=== PATIENT | female | born 1980 | race Caucasian/White ===

== ENCOUNTER 2023-07-21 02:38 | Outpatient (CLI) | payer OTHER, SELFPAY ==
--- OUTSIDE RECORDS SUMMARY | 2023-07-26 10:05 | XMS_ITS | Clinical Summary ---
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 05/2010 NIL/HPV Negative 07/2013 NIL 05/2017 NIL/HPV negative 10/2020 NIL/HPV negative 04/2023 NIL/HPV negative Plan: Pap/HPV due 04/2026 Resolved Problems Problem Noted Date Diagnosed Date Resolved Date Migraine 07/09/2013 04/24/2023 Encounters Date Type Department Care Team Description 07/21/[address] [phone] Brunilda Woodall MD FYI from Last 3 Months Immunizations Name Administration Dates Next Due COVID-19 vaccine ([employer] 30mcg/0.3mL) 12YO+ BIVALENT PF, MDV 12/22/2021 [...] Comments Blood Pressure 106/62 04/24/2023 3:34 PM [facility]ER Pulse 73 04/24/2023 3:34 PM SHO[facility]INER Temperature 36.8 ??C (98.2 ??F) 11/02/2020 6:36 PM CD T Respiratory Rate 16 11/02/2020 6:36 PM CDT Oxygen Saturation 99% 04/24/2023 3:34 PM [facility]INER Inhaled Oxygen Concentration - - Weight 44.8 kg (98 lb 12.8 oz) 04/24/2023 3:34 P M SHOESHINER Height 158.1 cm (5' 2.25) 04/24/2023 3:34 PM CS T Body Mass Index 17.93 04/24/2023 3:34 PM SHOESHINER Plan of Treatment Upcoming Encounters Date Type Department Care Team (Late st Contact Info) Description 07/26/2023 11:00 AM CDT Office Visit [facility] [address] [place] [address] Brunilda Woodall MD [address] [place] [address] Health Maintenance Due Date Last Done Comments [...] 18-79 Completed 12/23/2021 COVID-19 vaccine series Completed 01/05/20 23, 12/22/2021, 02/03/2021, Additional history exists Pneumococcal series for age 6-64 Aged Out No longer eligible based on patient's age to complete this topic Procedures Procedure Name Priority Date/Time Associated Diagnosis Comments HPV THIN PREP Routine 04/24/2023 3:30 PM [facility]INER Screening for malignant neoplasm of cervix ANTI HIV 1/2 Routine 12/23/2021 11:06 AM CDT Screening examination for STD (sexually transmitted disease) ANTI HCV Routine 12/23/2021 11:06 AM CDT Encounter for hepatitis C screening test for low risk patient from Last 3 Months or Most Recently Relevant to Health Maintenance Results * HPV HIGH RISK (04/24/2023 3:30 PM SHOESHINER) TYPE 16 Negative Negative 04/27/2023 12:47 PM [facility]ER [facility] TYPE 18 Negative Negative 04/27/2023 12:47 PM SHOESHINER [facility] OTHER HIGH RISK TYPES Negative Negative 04/27/2023 12:47 PM SHOESHINER [facility] Other (Cervical) Non-Blood / Unknown 04/24/2023 3:30 PM SHOESHINER 04/25/2023 1:12 PM SHOESHINER Narrative [facility] - 04/27/2023 12:47 PM SHOESHINER HPV types 16, 18, 31, 33, 35, 39, 45, 51, 52, 56, 58, 59, 66 and 68 DNA were undetectable or below the pre-set threshold. Methodology: Delfina Jessica 4800 HPV Test Brunilda Woodall MD MICROBIOLOGY [facility] [address] [place] [address], * ANTI HCV (12/23/2021 11:06 AM CDT) HEPATITIS C ANTIBODY Non-React mckenna Non-React mckenna 12/24/2021 5:48 PM CDT [facility] Comment:Antibodies to HCV no t detected; does not exclude the possibility of exposure to HCV. Blood BLOOD SPECIMEN / Unknown Venipuncture / Unknown 12/23/2021 11:06 AM CDT 12/23/2021 11:08 AM CDT Brunilda Woodall MD SEND OUTS [facility] [address] [place] [address], * ANTI HIV 1/2 (12/23/2021 11:06 AM CDT) HIV-1/HIV-2 ANTIBODY Non-Reacti ve Non-Reacti ve 12/24/2021 5:[address] [facility] Comment:HIV-1 p24 and HIV-1/ HIV-2 Ab not detected. Blood BLOOD SPECIMEN / Unknown Venipuncture / Unknown 12/23/2021 11:06 AM CDT 12/23/2021 11:08 AM CDT Brunilda Woodall MD SEND OUTS [facility] [address] [place] [address], from Last 3 Months or Most Recently Relevant to Health Maintenance Care Teams Brazer Helper Induction Relationship Specialty Start Date End Date Brunilda Woodall MD [address] [facility] [place] [address] PCP - General Family Practice 06/18/13
== END 2023-07-21 02:39 | disposition home or self-care (01) ==
LOC: AMB 07-26 10:01
PROVIDERS: PCP Family Medicine; Visit Provider Family Medicine
DX: R10.9 Unspecified abdominal pain (principal)
CPT/HCPCS: A0998

== ENCOUNTER 2023-07-21 03:06 | Emergency (ER) | payer OTHER, SELFPAY ==
[2023-07-21 03:15] VITALS: BP 103/60; PULSE 63; RESP 18; TEMP 36.4; O2SAT 100; BMI 18.3
--- NOTE | 2023-07-21 03:33 | CT_ITS ---
Patient: CATHY WATKINS Facility:?[facility] RIS Patient ID:?[id number] Site Patient ID:?[id number]. Site :?[id number] Study:?CT-Abdomen/Pelvis W/ISOVUE 370 49CC-07/21/2023 4:09:18 AM Ordering Physician:KARYN Final Report: INDICATION: epigastric pain TECHNIQUE: CT abdomen and pelvis with 49 cc Isovue 370 IV contrast. COMPARISON: None. FINDINGS: The liver is normal in size, shape and attenuation. 1.1 centimeter hypodense left hepatic lobe lesion most likely represents a hepatic cyst. Mild periportal edema. Gallbladder and biliary tree are normal. The spleen, adrenal glands and pancreas are within normal limits. Subcentimeter renal hypodensities are too small to characterize at the upper pole of the right kidney. No hydronephrosis. No bladder wall thickening. L the stomach is decompressed. Arge stool burden within the cecum, ascending colon, and proximal transverse colon. At the level of the proximal transverse colon the colon becomes focally narrowed which may relate to decompression in this area but can not entirely exclude a colonic lesion. The more distal colon is winy-xy-yfwbzdzdbg distended with air with mild stool burden more distally. The upstream small bowel is fluid-filled and mildly dilated which is nonspecific. No evidence of free air. Small volume free fluid within the pelvis. Pelvic organs are unremarkable. The lower chest is unremarkable. IMPRESSION: 1. Periportal edema is noted, nonspecific. Recommend correlation with LFTs. Finding can be seen the setting of hepatitis, amongst other etiologies. 2. Large stool burden within the cecum, ascending colon, and proximal transverse colon. At the level of the proximal transverse colon the colon becomes focally narrowed which may relate to decompression in this area but can not entirely exclude a colonic lesion. The more distal colon is oqgb-wg-kaohjxsiny distended with air with mild stool burden more distally. The upstream small bowel is fluid-filled and mildly dilated which is nonspecific. 3. Small volume free fluid within the pelvis. Please note that all CT scans at this facility use dose modulation, iterative reconstruction, and/or weight-based dosing when appropriate to reduce radiation dose to as low as reasonably achievable. Dictated by Milad Judd MD @ 07/21/2023 4:46:07 AM Signed by:?Milad Judd MD @07/21/2023 4:46:07 AM (Electronic Signature)
[2023-07-21] MEDS: 0.9 % SODIUM CHLORIDE 500 ML 500 ML 1000 ML IV (04:00)
[2023-07-21] MEDS: fentaNYL 100 MCG/2 ML inj 25 MCG IVP (04:00)
[2023-07-21 04:13] LABS: Basophils Absolute Auto 0.04 K/uL (0.00-0.30); Basophils Percent Auto 0.5 % (0.0-3.0); Eosinophils Absolute Auto 0.08 K/uL (0.00-0.50); Immature Granulocytes Abs Auto 0.02 K/uL (0.00-0.30); Immature Granulocytes Pct Auto 0.2 %; Lymphocytes Percent Auto 19.1 % (20-44); Mean Corpuscular HGB Conc 32 gm/dL (32-36); Mean Corpuscular Hemoglobin 27 pg (26-34); Mean Corpuscular Volume 83 fL (80-100); Monocytes Percent Auto 7.3 % (0.0-11.0); Neutrophils Absolute Auto 5.78 K/uL (1.7-7.0); Neutrophils Percent Auto 71.9 % (42.0-72.0); Platelet Count* 230 K/uL (140-440); RDW Coefficient of Variation % 14.6 % (11.5-15.5); Red Blood Count 3.75 m/uL (4.00-5.20); White Blood Count* 8.05 K/uL (4.50-11.00)
[2023-07-21 04:16] LABS: Albumin* 4.4 g/dL (3.3-5.0); Potassium* 3.7 mmol/L (3.6-5.1); Sodium* 137 mmol/L (135-149)
[2023-07-21 04:17] LABS: Slide Review Reflex No
[2023-07-21 04:18] LABS: Anion Gap 8 mEq/L (7-15); Carbon Dioxide* 24 mmol/L (20-32); Chloride* 105 mmol/L (96-114); Creatinine* 0.7 mg/dL (0.5-1.5); Estimated Glomerular Filt Rate 112 ml/min
[2023-07-21 04:19] VITALS: BP 107/59; PULSE 57; RESP 16; TEMP 36.7; O2SAT 100
[2023-07-21 04:19] LABS: Alanine Aminotransferase* 13 U/L (4-35); Alkaline Phosphatase* 46 U/L (40-150); Aspartate Amino Transferase* 30 U/L (12-35); Bilirubin Total* 0.5 mg/dL (0.1-1.5); Blood Urea Nitrogen* 16 mg/dL (5-24); Calcium* 9.1 mg/dL (8.4-10.6); Glucose* 144 mg/dL (60-115); Lipase* 86 U/L (23-300); Total Protein* 7.3 g/dL (6.0-8.3)
--- OUTSIDE RECORDS SUMMARY | 2023-07-21 04:32 | XMS_ITS | Clinical Summary ---
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 05/2010 NIL/HPV Negative 07/2013 NIL 05/2017 NIL/HPV negative 10/2020 NIL/HPV negative 04/2023 NIL/HPV negative Plan: Pap/HPV due 04/2026 Resolved Problems Problem Noted Date Diagnosed Date Resolved Date Migraine 07/09/2013 04/24/2023 Encounters Date Type Department Care Team Description 04/24/2023 3:30 PM AMBULANCE MECHANIC Office Visit [address] [address] Brunilda Woodall MD Physical 04/24/2023 Travel from Last 3 Months Immunizations Name Administration Dates Next Due COVID-19 vaccine ([employer] NTech 30mcg/0.3mL) 12YO+ BIVALENT PF, MDV 12/22/2021 Influenza A (H1N1), Inactivated 03/19/2009 Influenza, IIV3 (Age >=3 years) 05/15/2006 Influenza, IIV4 12/22/2021, 6,12/15/2014,2012 Influenza, IIV4 (=>6mos) MDV 11/27/2019, 12/31/2018,12/05/2017,2016,01/06/2014 Influenza, Injectable, Mdck, Quadrivalent, W/preservative 01/04/2023,11/24/2020 Tdap 07/24/2018,01/31/2007 Tetanus Toxoid 01/31/2007 Family History Medical History Relation Name Comments No Known Problems Brother No Known Problems Daughter Good Health Father No Known Problems Half-Brother No Known Problems Half-Sister No Known Problems Maternal Aunt No Known Problems Maternal Grandfather No Known Problems Maternal Grandmother No Known Problems Maternal Uncle Good Health Mother No Known Problems Other No Known Problems Paternal Aunt No Known Problems Paternal Grandfather No Known Problems Paternal Grandmother No Known Problems Paternal Uncle No Known Problems Sister No Known Problems Son Relation Name Status Comments Brother Daughter Father Alive Half-Brother Half-Sister Maternal Aunt Maternal Grandfather Maternal Grandmother Maternal Uncle Mother Alive Other Paternal Aunt Paternal Grandfather Paternal Grandmother Paternal Uncle Sister Son Social History Tobacco Use Types Packs/Day Years Used Date Smoking Tobacco: Never Smokeless Tobacco: Never Tobacco Cessation:Counseling Given: Yes Alcohol Use Standard Drinks/Week Comments Yes 0 (1 standard drink = 0.6 oz pur e alcohol) occasionally beer PHQ-2 Answer Date Recorded PHQ-2 TOTAL SCORE 0 04/24/2023 Social Connections Answer Date Recorded Frequency of Communication with Friends and Fami ly Not on file 03/06/2021 Financial Resource Strain Answer Date R ecorded Difficulty of Paying Living Expenses Not on file 03/06/2021 Difficulty of Paying Living Expenses Not on file 03/06/2021 Sex and Gender Information Value Date Recorded Sex Assigned at Not on file Gender Identity Not on file Sexual Orientation Not on file Obstetrics History Para Term AB IAB SAB Ectopic Multiple Livin g Live Births 2 2 2 2 Date Outcome GA Total Labor Labor/2nd/3rd Weight Sex Delivery Anes PTL Alycia A1 A5 Name Cl in Term Term Last Filed Vital Signs Vital Sign Reading Time Taken Comments Blood Pressure 106/62 04/24/2023 3:34 PM AMBULANCE MECHANIC Pulse 73 04/24/2023 3:34 PM AMBULANCE MECHANIC Temperature 36.8 ??C (98.2 ??F) 11/02/2020 6:36 PM CD T Respiratory Rate 16 11/02/2020 6:36 PM CDT Oxygen Saturation 99% 04/24/2023 3:34 PM AMBULANCE MECHANIC Inhaled Oxygen Concentration - - Weight 44.8 kg (98 lb 12.8 oz) 04/24/2023 3:34 P M AMBULANCE MECHANIC Height 158.1 cm (5' 2.25) 04/24/2023 3:34 PM CS T Body Mass Index 17.93 04/24/2023 3:34 PM AMBULANCE MECHANIC Plan of Treatment Health Maintenance Due Date Last Done Comments Influenza for age 9-49 11/05/2023 , 12/22/2021, 11/24/2020, Additional history exists BMI (ht and wt on same day) for age 18+ 04/24/2024 04/24/2023, 12/22/2021, 11/02/2020, Additional history exists Depression screening for age 12+ 04/24/2024 04/24/2023, 12/22/2021, 11/02/2020, Additional history exists Pap test for age 21-65 04/24/2026 , 04/24/2023, 11/02/2020, Additional history exists Tetanus booster 07/24/2028 07/24/2018, 01/31/2007 Tdap Completed 07/24/2018, 01/31/2007 HIV for age 15-65 Completed 12/23/2021 Hepatitis C screening for age 18-79 Completed 12/23/2021 COVID-19 vaccine series Completed 01/05/20, 12/22/2021, 02/03/2021, Additional history exists Pneumococcal series for age 6-64 Aged Out No longer eligible based on patient's age to complete this topic Procedures Procedure Name Priority Date/Time Associated Diagnosis Comments LIPID PANEL W REFLEX MEASURED LDL Routine 04/24/2023 4:13 PM AMBULANCE MECHANIC Annual physical exam Vitamin D deficiency BASIC METABOLIC PANEL Routine 04/24/2023 4:13 PM AMBULANCE MECHANIC Annual physical exam CBC W PLT NO DIFF Routine 04/24/2023 4:1 3 PM AMBULANCE MECHANIC Annual physical exam QUALITY ASSURANCE LAB TECHNICIAN THIN PREP PAP SCREEN IMAGED Routine 04/24/2023 3:30 PM AMBULANCE MECHANIC Screening for malignant neoplasm of cervix HPV THIN PREP Routine 04/24/2023 3:30 PM AMBULANCE MECHANIC Screening for malignant neoplasm of cervix ANTI HIV 1/2 Routine 12/23/2021 11:06 AM CDT Screening examination for STD (sexually transmitted disease) ANTI HCV Routine 12/23/2021 11:06 AM CDT Encounter for hepatitis C screening test for low risk patient from Last 3 Months or Most Recently Relevant to Health Maintenance Results * (ABNORMAL) LIPID PANEL W REFLEX MEASURED LDL (04/24/2023 4:13 PM AMBULANCE MECHANIC) CHOLESTEROL,TOTAL 223(H) 100 - 199 mg/dL 04/24/2023 5:[address] [facility] Comment: Cholesterol, Total Reference Ranges Desirable <200 mg/dL Borderline 200-239 mg/dL High >=240 mg/dL TRIGLYCERIDES 111 <150 mg/dL 04/24/2023 5:[address] [facility] HDL CHOLESTEROL 76 >40 mg/dL 5:[address] [facility] NON-HDL CHOLESTEROL 147(H) <145 mg/dl 04/24/2023 5:[address] [facility] CHOL/HDL RATIO 2.93 <4.50 04/24/2023 5:[address] [facility] LDL CHOLESTEROL 125 <=130 mg/dL 04/24/2023 5:[address] [facility] VLDL CHOLESTEROL 22 <=30 mg/dL 04/24/2023 5:[address] [facility] PROVIDER ORDERED STATUS RANDOM 04/24/2023 5:[address] [facility] Blood BLOOD SPECIMEN / Unknown Venipuncture / Unknown 04/24/2023 4:13 PM AMBULANCE MECHANIC 04/24/2023 4:15 PM AMBULANCE MECHANIC Brunilda Woodall MD CHEMISTRY [facility] [address] [place] [address] * (ABNORMAL) CBC W PLT NO DIFF (04/24/2023 4:13 PM AMBULANCE MECHANIC) WHITE BLOOD COUNT 7.2 4.5 - 11.0 thou/cu mm 04/24/2023 4:[address] [facility] RED BLOOD COUNT 4.22 4.00 - 5.20 mil/cu mm 04/24/2023 4:[address] [facility] HEMOGLOBIN 11.3(L) 12.0 - 16.0 g/dL 04/24/2023 4:[address] [facility] HEMATOCRIT 36.3 33.0 - 51.0 % 04/24/2023 4:[address] [facility] MCV 86 80 - 100 fL 04/24/2023 4:[address] [facility] MCH 26.8 26.0 - 34.0 pg 04/24/2023 4:[address] [facility] MCHC 31.1(L) 32.0 - 36.0 g/dL 04/24/2023 4:[address] [facility] RDW 14.5 11.5 - 15.5 % 04/24/2023 4:[address] [facility] PLATELET COUNT 289 140 - 440 thou/cu mm 04/24/2023 4:[address] [facility] MPV 9.8 6.5 - 11.0 fL 04/24/2023 4:[address] [facility] Blood BLOOD SPECIMEN / Unknown Venipuncture / Unknown 04/24/2023 4:13 PM AMBULANCE MECHANIC 04/24/2023 4:15 PM [facility] Brunilda Woodall MD HEMATOLOGY [facility] [address] [place] [address] * BASIC METABOLIC PANEL (04/24/2023 4:13 PM [facility]) [facility] SODIUM 141 136 - 145 mmol/L 04/24/2023 5:[address] [facility] POTASSIUM 3.8 3.5 - 5.1 mmol/L 04/24/2023 5:[address] [facility] CHLORIDE 104 98 - 107 mmol/L 04/24/2023 5:[address] [facility] CO2,TOTAL 28 22 - 29 mmol/L 04/24/2023 5:[address] [facility] ANION GAP 9 5 - 18 04/24/2023 5:[address] [facility] GLUCOSE 87 70 - 99 mg/dL 04/24/2023 5:[address] [facility] CALCIUM 9.7 8.6 - 10.0 mg/dL 04/24/2023 5:[address] [facility] BUN 14 6 - 20 mg/dL 04/24/2023 5:[address] [facility] CREATININE 0.73 0.50 - 0.90 mg/dL 04/24/2023 5:[address] [facility] BUN/CREAT RATIO 19 10 - 20 5:[address] [facility] eGFR >90 >90 mL/min/1.7 3m2 04/24/2023 5:[address] [facility] Comment:As of 2021, eG FR is calculated by the CKD-EPI creatinine equation without race adjustment. ??eGFR can be influenced by muscle mass, exercise, and diet. ??The reported eGFR is an estimation only and is only applicable if the renal function is stable. Blood BLOOD SPECIMEN / Unknown Venipuncture / Unknown 04/24/2023 4:13 PM AMBULANCE MECHANIC 04/24/2023 4:15 PM AMBULANCE MECHANIC Brunilda Woodall MD CHEMISTRY [facility] [address] [place] [address] * QUALITY ASSURANCE LAB TECHNICIAN THIN PREP PAP SCREEN IMAGED (04/24/2023 3:30 PM AMBULANCE MECHANIC) Case Report Gynecologic Cytology Report ? Case: [id number] ? Authorizing Provider: ??Brunilda Woodall MD ?Collected: ? 04/24/2023 1530 ? Ordering Location: ? [facility] ?Received: ?04/24/2023 1643 ? Clinic ? First Screen: ?Julisa Murcia ? Specimen: ?QUALITY ASSURANCE LAB TECHNICIAN ThinPrep Vial Screening, Cervical ? 05/01/2023 12:18 PM [facility]CHANIC [facility] INTERPRETATION/ RESULT NEGATIVE FOR INTRAEPITHELIAL LESION OR MALIGNANCY (NIL) (none) 05/01/2023 12:18 PM [facility]- [facility]AL [facility] NISM(S) Fungal organisms morphologically consistent with Monika species 05/01/2023 12:18 PM [facility]BULANCE MECHANIC [facility] ENTRAL [facility] SPECIMEN ADEQUACY Satisfactory for evaluation Endocervical component present 05/01/2023 12:18 PM AMBULANCE MECHANIC [facility] ENTRAL LABORATORY HPV REQUEST HPV and PAP 05/01/2023 12:18 PM AMBULANCE MECHANIC [facility] ENTRAL LABORATORY Date of LMP 04/03/2023 05/01/2023 12:18 PM AMBULANCE MECHANIC [facility] Last Pap Date 11/03/20 05/01/2023 12:18 PM AMBULANCE MECHANIC [facility] Last Pap Result NIL 12:18 PM AMBULANCE MECHANIC [facility] EN[facility] Abnormal Pap or [place] Bx in last 5 years No 05/01/2023 12:18 PM AMBULANCE MECHANIC [facility] Menstrual Status Regular Periods 05/01/2023 12:18 PM AMBULANCE MECHANIC [facility] [place] Bx Done Today No 05/01/2023 12:18 PM AMBULANCE MECHANIC [facility] Additional Information None given 05/01/2023 12:18 PM AMBULANCE MECHANIC [facility] Comment: Cytology is screened at [facility] - [address], [place] [address] and [facility] - [address] [place] [address] and [facility] - [address] [place] [address] Interpreted at [facility] - [address], [place] [address] Automated Review Successful 05/01/2023 12:18 PM AMBULANCE MECHANIC [facility] Comment:Specimen processed s uccessfully by automated rn unit manager device, ThinPrep Imaging System, [employer] ANCILLARY TESTING QUALITY ASSURANCE LAB TECHNICIAN HPV Ordered, Please see separate report 05/01/2023 12:18 PM AMBULANCE MECHANIC [facility] Note The pap test is a screening technique, not a diagnostic procedure. It is used primarily to screen for squamous cancers and precursor lesions. Published studies have shown that it is subject to both false negative and false positive results. The pap test should not be used as the sole means to diagnose or exclude pre-malignant and malignant lesions. 05/01/2023 12:18 PM AMBULANCE MECHANIC [facility] Other (Cervical) Non-Blood / Unknown 04/24/2023 3:30 PM AMBULANCE MECHANIC 04/24/2023 4:43 PM AMBULANCE MECHANIC Brunilda Woodall MD PATHOLOGY/CYTOLOGY [facility] [address] [place] [address] * HPV HIGH RISK (04/24/2023 3:30 PM AMBULANCE MECHANIC) [facility] TYPE 16 Negative Negative 04/27/2023 12:47 PM AMBULANCE MECHANIC [facility] TYPE 18 Negative Negative 04/27/2023 12:47 PM AMBULANCE MECHANIC [facility] OTHER HIGH RISK TYPES Negative Negative 04/27/2023 12:47 PM AMBULANCE MECHANIC [facility] Other (Cervical) Non-Blood / Unknown 04/24/2023 3:30 PM AMBULANCE MECHANIC 04/25/2023 1:12 PM AMBULANCE MECHANIC Narrative [facility] - 04/27/2023 12:47 PM AMBULANCE MECHANIC HPV types 16, 18, 31, 33, 35, 39, 45, 51, 52, 56, 58, 59, 66 and 68 DNA were undetectable or below the pre-set threshold. Methodology: Delfina Jessica 4800 HPV Test Brunilda Woodall MD MICROBIOLOGY Performing Organization Address [facility] Co de Phone Number [facility] [address] [place] [address] * ANTI HCV (12/23/2021 11:06 AM CDT) [facility] HEPATITIS C ANTIBODY Non-React mckenna Non-React mckenna 12/24/2021 5:48 PM CDT [facility] Comment:Antibodies to HCV no t detected; does not exclude the possibility of exposure to HCV. Blood BLOOD SPECIMEN / Unknown Venipuncture / Unknown 12/23/2021 11:06 AM CDT 12/23/2021 11:08 AM CDT Brunilda Woodall MD SEND OUTS Performing Organization Address City/[facility]/ZIP Co de Phone Number [facility] [address] [place] [address], * ANTI HIV 1/2 (12/23/2021 11:06 AM CDT) HIV-1/HIV-2 ANTIBODY Non-Reacti ve Non-Reacti ve 12/24/2021 5:48 PM CDT [facility] Comment:HIV-1 p24 and HIV-1/ HIV-2 Ab not detected. Blood BLOOD SPECIMEN / Unknown Venipuncture / Unknown 12/23/2021 11:06 AM CDT 12/23/2021 11:08 AM CDT Brunilda Woodall MD SEND OUTS [facility] LAB[facility] [address] [place] [address], from Last 3 Months or Most Recently Relevant to Health Maintenance Care Teams Salesforce Administrator Relationship Specialty Start Date End Date Brunilda Woodall MD [address] [facility] [place] [address] PCP - General Family Practice 06/18/13
--- NOTE | 2023-07-21 04:44 | PC.NURSE ---
Pt states she is unable to urinate, will let RN know when she is able to give a sample. IV fluids going. Pt rates abdominal pain 6/10 currently, declines medication for discomfort at this time. SO at bedside.
[2023-07-21] MEDS: SIMETHICONE 80 MG TAB.CHEW 160 MG PO (05:21)
[2023-07-21] MEDS: MORPHINE 2 MG/ML inj IVP (05:21)
[2023-07-21 05:54] VITALS: BP 99/59; PULSE 57; RESP 16; O2SAT 99
--- NOTE | 2023-07-21 05:55 | PC.NURSE ---
Pt states pain is improved, rates discomfort 4/10. Able to rest. Still need urine, pt will put chemist water purification light when she feels like she can pee. SO at bedside.
--- NOTE | 2023-07-21 06:07 | ED.ABDPAIN ---
HPI - Abdominal Pain General Date Seen: 07/21/23 Chief Complaint: Abdominal Pain Stated Complaint: upper abdominal pain Time Seen by Provider: 07/21/23 03:12 Source: patient Mode of arrival: ambulatory Limitations: no limitations History of Present Illness HPI narrative: Patient is a 42-year-old female who was in her usual state of good health when she went to bed this evening. She awoke at around 1:30 a.m. to urinate and after going she stood up and had severe epigastric pain. She did vomit a little but that did not relieve her pain. She called the nurse line who told her to call 911. When the paramedics arrived they gave her dose of Zofran and told her that she should seek medical attention. Her boyfriend brings her in for evaluation. She has never had pain like this previously. She has a bowel movement about every other day. She had one yesterday. She did eat case heard food twice yesterday but nothing out of the ordinary. No fevers or chills. No black or bloody stools. She has no chronic health problems and takes no medication regularly. There is no family history of colon cancer. No acid reflux. She is not a drinker. Related Data Previous Rx's Medication Instructions Recorded hydrocodone 5 mg-acetaminophen 325 1 tab PO Q4H PRN pain #10 tabs 07/21/23 mg tablet Allergies Allergy/AdvReac Type Severity Reaction Status Date / Time No Known Drug Allergies Allergy Verified 07/21/23 03:20 Review of Systems Narrative Review of systems is outlined above otherwise noted to be negative. PFSH PFS Surgical History (Updated 07/21/23 @ 06:02 by Gallito Samaniego MD) History of loop electrical excision procedure (LEEP) ?Z98.890 - Other specified postprocedural states (ICD-10) Social History (Updated 07/21/23 @ 06:07 by Gallito Samaniego MD) Narrative: , 2 sons, noin-smoker Smoking Status: Never smoker Do you use any of these nicotine containing products: None Second hand tobacco smoke exposure: No How often do you have a drink containing alcohol: monthly or less How often do you have six or more drinks on one occasion: Never AUDIT-C Alcohol total score: 1 Non-prescribed substance use: denies use service: No Exam Narrative: Exam Narrative: Vitals noted. She appears pale and very uncomfortable. Lungs: Clear to auscultation in all felix. No wheezes, rales, rhonchi. Heart: Regular rate and rhythm without murmur. Abdomen: Thin, Soft with epigastric and left upper quadrant tenderness. No guarding, rigidity, rebound. Bowel sounds are normal. No palpable masses. Extremities: No cyanosis or edema. Good distal pulses. Skin: No abnormalities noted of the exposed skin. Neurologic: Awake, alert, fully oriented. Neurologic exam is nonfocal. Const: Vital Signs, click to edit/add: Vital Signs - 24 hr 07/21/23 03:15 07/21/23 04:19 07/21/23 05:54 Temperature 97.6 F 98.0 F Pulse Rate [Pulse Oximeter] 63 57 L 57 L Respiratory Rate 18 16 16 Blood Pressure [Ri ght Upper Arm] 103/60 107/59 L 99/59 L Pulse Oximetry 100 100 99 Oxygen Delivery Me thod Room Air Room Air Room Air 07/21/23 06:37 Temperature 98.0 F Pulse Rate [Pulse Oximeter] 56 L Respiratory Rate 16 Blood Pressure [Ri ght Upper Arm] 111/73 Pulse Oximetry 99 Oxygen Delivery Me thod Room Air Course Course ED Course: Patient was seen and examined. Labs and CT of her abdomen and pelvis are ordered. She is given fentanyl 25 mcg IV to help with pain control. She had a dose of Zofran and within the last hour. IV is established in she will be given a L of saline. Reevaluation(s) Reevaluation #1: CBC shows a hemoglobin of 10.0. This was almost 12 in April. Basic metabolic panel and LFTs and lipase are all normal. CT of her abdomen and pelvis with IV contrast shows some nonspecific periportal edema, a large stool burden mainly in the right colon. There is an area in the proximal transverse colon with focal narrowing that the radiologist's comments could represent a colonic lesion. Small bowel is mildly distended and fluid filled. Her distal colon has a lot of air. Her pain was not relieved by fentanyl and 2 mg of IV morphine was given along with a dose of simethicone 160 mg orally. Reevaluation #2: The case was discussed with Dr. Huff who did not feel that an emergent endoscopy was necessary. The patient is feeling of little better after the morphine and simethicone. She is comfortable being discharged home with a plan to follow-up with her PCP early next week to discuss an outpatient colonoscopy as well as her new anemia. All questions were answered. We discussed foods to try as well as foods to avoid. Vital Signs Vital signs: Initial Vital Signs Temperature 97.6 F 07/21/23 03:15 Temperature Source Temporal Artery Scan 07/21/23 03:15 Pulse Rate 63 07/21/23 03:15 Pulse Rhythm Regular 07/21/23 03:15 Respiratory Rate 18 07/21/23 03:15 Blood Pressure 103/60 07/21/23 03:15 Blood Pressure Mean 74 07/21/23 03:15 Blood Pressure Position Sitting 07/21/23 03:15 Pulse Oximetry 100 07/21/23 03:15 Oxygen Delivery Method Room Air 07/21/23 03:15 Vital Signs Temperature 97.6 F 07/21/23 03:15 Pulse Rate 63 07/21/23 03:15 Respiratory Rate 18 07/21/23 03:15 Blood Pressure 103/60 07/21/23 03:15 Pulse Oximetry 100 07/21/23 03:15 Oxygen Delivery Method Room Air 07/21/23 03:15 Temperature 98.0 F 07/21/23 06:37 Pulse Rate 56 L 07/21/23 06:37 Respiratory Rate 16 07/21/23 06:37 Blood Pressure 111/73 07/21/23 06:37 Pulse Oximetry 99 07/21/23 06:37 Oxygen Delivery Method Room Air 07/21/23 06:37 Medications Administered Medications: Generic Name Dose Route Start Last Admin Trade Name Abilio PRN Reason Stop Dose Admin Fentanyl 25 mcg 07/21/23 03:36 07/21/23 04:00 Fentanyl 100 Mcg/2 Ml Inj IVP 07/21/23 03:37 25 mcg ONCE ONE Administration Sodium Chloride 500 mls @ 1,000 mls/hr 07/21/23 03:35 07/21/23 04:00 0.9 % Sodium Chloride 500 Ml IV 07/21/23 04:04 1,000 mls/hr .Q30M TERESO Administration Morphine Sulfate 2 mg 07/21/23 05:02 07/21/23 05:21 Morphine 2 Mg/Ml Inj IVP 07/21/23 05:03 2 mg ONCE ONE Administration Simethicone 160 mg 07/21/23 05:03 07/21/23 05:21 Simethicone 80 Mg Tab.Chew PO 07/21/23 05:04 160 mg ONCE ONE Administration MDM - Abdominal Pain Lab Data Labs: Lab Results 07/21/23 Range/Units 03:46 WBC 8.05 (4.50-11.00) K/uL RBC 3.75 L (4.00-5.20) m/uL Hgb 10.0 L (12.0-16.0) gm/dL Hct 31.0 L (33.0-51.0) % MCV 83 (80-100) fL MCH 27 (26-34) pg MCHC 32 (32-36) gm/dL RDW Coeff of Soy 14.6 (11.5-15.5) % Plt Count 230 (140-440) K/uL Neut % (Auto) 71.9 (42.0-72.0) % Lymph % (Auto) 19.1 L (20-44) % [place] % (Auto) 7.3 (0.0-11.0) % Eos % (Auto) 1.0 (0.0-7.0) % Baso % (Auto) 0.5 (0.0-3.0) % Neut # (Auto) 5.78 (1.7-7.0) K/uL Lymph # (Auto) 1.50 (0.90-2.90) K/uL [place] # (Auto) 0.60 (0.00-0.90) K/UL Eos # (Auto) 0.08 (0.00-0.50) K/uL Baso # (Auto) 0.04 (0.00-0.30) K/uL Abs Immat Gran (auto) 0.02 (0.00-0.30) K/uL Imm/Tot Granulo (auto) 0.2 % Sodium 137 (135-149) mmol/L Potassium 3.7 (3.6-5.1) mmol/L Chloride 105 (96-114) mmol/L Carbon Dioxide 24 (20-32) mmol/L Anion Gap 8 (7-15) mEq/L BUN 16 (5-24) mg/dL Creatinine 0.7 (0.5-1.5) mg/dL Estimated Creat Clear 76.50 Estimated GFR 112 ml/min Glucose 144 H (60-115) mg/dL Calcium 9.1 (8.4-10.6) mg/dL Total Bilirubin 0.5 (0.1-1.5) mg/dL Direct Bilirubin 0.0 (0.0-0.5) mg/dL AST 30 (12-35) U/L ALT 13 (4-35) U/L Alkaline Phosphatase 46 (40-150) U/L Total Protein 7.3 (6.0-8.3) g/dL Albumin 4.4 (3.3-5.0) g/dL Lipase 86 (23-300) U/L Discharge Plan Discharge Clinical Impression: Abdominal pain Patient Disposition: Home, Self-Care Condition: Improved Additional Instructions: Tylenol 1000 mg every 6 hours as needed, ibuprofen 600 mg every 6 hours as needed, Verdi for refractory pain (use very sparingly as it can be constipating). Avoid gas producing foods such as raw vegetables, beans, etc. You can take simethicone every 4 hours as needed. You can take MiraLax one capful twice daily to help with constipation. Avoid stimulant laxatives. Push fluids, stay active, follow-up with your PCP early next week to discuss colonoscopy verses repeat imaging. You will also need to discuss your anemia. Return to the emergency department for uncontrolled pain. Prescriptions: New hydrocodone-acetaminophen 5-325 mg tablet 1 tab PO Q4H PRN (Reason: pain) Qty: 10 0RF Follow Up/Referrals: Brunilda Woodall MD [Primary Care Provider] - Stand Alone Forms: [email or web address] Info Instructions
[2023-07-21 06:37] VITALS: BP 111/73; PULSE 56; RESP 16; TEMP 36.7; O2SAT 99
== END 2023-07-21 06:53 | disposition home or self-care (01) ==
PROVIDERS: Emergency Provider Family Medicine; PCP Family Medicine
DX: R10.13 Epigastric pain (principal)
CPT/HCPCS: 36415; 74177; 80048; 80076; 81003; 83690; 85025; 96374; 96375; 99283; 99284; A9270; J2270; J3010; J7030; Q9967